=== PATIENT | male | born 1995 | race Caucasian/White ===

== ENCOUNTER 2017-11-04 04:20 | Emergency (ER) | payer BC, OTHER ==
[~2017-11-04] VITALS: Ht 175.3 cm; Wt 79.4 kg
[2017-11-04 04:25] VITALS: BP_SYST 150
[2017-11-04 05:08] VITALS: BP_SYST 144
== END 2017-11-04 05:08 | disposition home or self-care (01) ==
LOC: SED 04:20
DX: R07.89 Other chest pain (principal); R03.0 Elevated blood-pressure reading, without diagnosis of hypertension
CPT/HCPCS: 93005; 99283